=== PATIENT | male | born 1930 | race Caucasian/White ===

== ENCOUNTER 2017-10-30 20:40 | Emergency (ER) | payer OTHER ==
--- NOTE | 2017-10-30 21:16 | PDOC ---
History of Present Illness - General History Source: Patient Exam Limitations: No Limitations - History of Present Illness Initial Comments: 10/30/17 21:42 The patient is an 87 year old male with past medical history of atrial fibrillation who was sent from urgent care for flu like symptoms. As per patient , states hes got the flu but denies any fever, chills, body aches, cough, runny nose. He states he just doesnt feel well as he feels more tired than usual. He denies any sick contacts or recent illness. Denies nausea, vomiting, diarrhea. <Tessa Lowe - Last Filed: 10/30/17 22:02> <Jamie Liu - Last Filed: 10/31/17 02:26> - General Chief Complaint: Irregular Heart Beat Stated Complaint: A-FIB Time Seen by Provider: 10/30/17 21:14 Past History <Tessa Lowe - Last Filed: 10/30/17 22:02> <Jamie Liu - Last Filed: 10/31/17 02:26> - Past Medical History Allergies/Adverse Reactions: Allergies Allergy/AdvReac Type Severity Reaction Status Date / Time No Known Allergies Allergy Unverified 10/30/17 21:27 Home Medications: Ambulatory Orders Dabigatran Etexilate Mesylate [Pradaxa -] 75 mg PO BID 10/30/17 Diltiazem HCl [Diltiazem 24Hr Cd] 240 mg PO DAILY 10/30/17 Furosemide [Lasix] 20 mg PO Q48H 10/30/17 Losartan Potassium [Cozaar -] 50 mg PO DAILY 10/30/17 Docusate Sodium [Colace] 100 mg PO TID #90 capsule 10/31/17 Oseltamivir Phosphate [Tamiflu] 75 mg PO BID #20 capsule 10/31/17 Review of Systems - Review of Systems Able to Perform ROS?: Yes Comments:: 10/30/17 21:42 GENERAL/CONSTITUTIONAL: Present: fever No chills. No weakness. HEAD, EYES, EARS, NOSE AND THROAT: No change in vision. No ear pain or discharge. No sore throat. CARDIOVASCULAR: No chest pain or shortness of breath. RESPIRATORY: No cough, wheezing, or hemoptysis. GASTROINTESTINAL: No nausea, vomiting, diarrhea or constipation. GENITOURINARY: No dysuria, frequency, or change in urination. MUSCULOSKELETAL: No joint or muscle swelling or pain. No neck or back pain. SKIN: No rash NEUROLOGIC: No headache, vertigo, loss of consciousness, or change in strength/ sensation. ENDOCRINE: No increased thirst. No abnormal weight change. HEMATOLOGIC/LYMPHATIC: No anemia, easy bleeding, or history of blood clots. ALLERGIC/IMMUNOLOGIC: No hives or skin allergy. All Other Systems: Reviewed and Negative <Tessa Lowe - Last Filed: 10/30/17 22:02> *Physical Exam - Vital Signs Last Vital Signs Temp Pulse Resp BP Pulse Ox 100.7 F H 92 H 16 126/79 99 10/30/17 21:10 10/30/17 21:10 10/30/17 21:10 10/30/17 21:10 10/30/17 21:10 - Physical Exam Comments: 10/30/17 21:43 GENERAL: Awake, alert, and fully oriented, in no acute distress HEAD: No signs of trauma EYES: PERRLA, EOMI, sclera anicteric, conjunctiva clear ENT: Auricles normal inspection, hearing grossly normal, nares patent, oropharynx clear without exudates. Moist mucosa NECK: Normal ROM, supple, no lymphadenopathy, JVD, or masses LUNGS: Breath sounds equal, clear to auscultation bilaterally. No wheezes, and no crackles HEART: Regular rate and rhythm, normal S1 and S2, no murmurs, rubs or gallops ABDOMEN: Soft, nontender, normoactive bowel sounds. No guarding, no rebound. No masses EXTREMITIES: Normal range of motion, no edema. No clubbing or cyanosis. No cords, erythema, or tenderness NEUROLOGICAL: Cranial nerves II through XII grossly intact. Normal speech, normal gait SKIN: Warm, Dry, normal turgor, no rashes or lesions noted. <Tessa Lowe - Last Filed: 10/30/17 22:02> Heart Score/ECG Review - ECG Intrepretation Comment:: 10/30/17 22:02 Vent rate 88 atrial fibrillation <Tessa Lowe - Last Filed: 10/30/17 22:02> ED Treatment Course - LABORATORY CBC & Chemistry Diagram: 10/30/17 21:30 10/30/17 21:30 <MynorTessa - Last Filed: 10/30/17 22:02> - LABORATORY CBC & Chemistry Diagram: 10/30/17 21:30 10/31/17 00:26 <Jamie Liu - Last Filed: 10/31/17 02:26> Medical Decision Making - Medical Decision Making 10/31/17 02:25 cxr: BONNY as read by me Influenza-- tamiflu hyponatremia likely secondary to decreased PO. lytes sent. resolved with 1Lns <Jamie Liu - Last Filed: 10/31/17 02:26> *DC/Admit/Observation/Transfer - Attestations Scribe Attestion: 10/30/17 21:43 Documentation prepared by Tessa Lowe, acting as medical van driver for Jamie Liu MD. <Tessa Lowe - Last Filed: 10/30/17 22:02> <Jamie Liu - Last Filed: 10/31/17 02:26> Diagnosis at time of Disposition: Influenza - Discharge Dispostion Disposition: HOME Condition at time of disposition: Good - Prescriptions Prescriptions: Docusate Sodium [Colace] 100 mg PO TID #90 capsule Oseltamivir Phosphate [Tamiflu] 75 mg PO BID #20 capsule - Patient Instructions Printed Discharge Instructions: DI for Influenza -- Adult
[2017-10-30 21:21] VITALS: BP 126/79; PULSE 92; TEMP 100.7; BMI 29.0
[2017-10-30 21:50] LABS: HEMATOCRIT 40.9 % (35.4-49); HEMOGLOBIN 13.3 GM/dl (11.7-16.9); MCH 33.8 pg (25.7-33.7); MCHC 32.5 g/dl (32.0-35.9); MEAN CELL VOLUME 103.8 fl (80-96); MEAN PLT VOLUME 9.1 fl (7.5-11.1); PLATELET COUNT 124 K/MM3 (134-434); RBC 3.95 M/mm3 (4.00-5.60); RDW 12.9 % (11.9-15.9)
[2017-10-30 21:51] LABS: ALBUMIN 4.3 g/dl (3.5-5.0); ALK PHOS 75 U/L (32-92); ANION GAP 6 (8-16); BILIRUBIN,TOTAL 1.4 mg/dl (0.2-1.0); BLOOD UREA NITROGEN 23 mg/dl (7-18); CALCIUM 8.3 mg/dl (8.4-10.2); CHLORIDE 101 mmol/L (98-107); CO2 22 mmol/L (22-28); CREATININE 1.2 mg/dl (0.6-1.3); GLUCOSE,RANDOM 94 mg/dl (74-106); POTASSIUM 4.1 mmol/L (3.5-5.1); SGOT/AST 42 U/L (10-42); SGPT/ALT 24 U/L (10-40); SODIUM 129 mmol/L (136-145); TOT PROT 7.4 g/dl (6.4-8.3)
[2017-10-30 23:01] LABS: PLATELET ESTIMATE ADEQUATE
[2017-10-30] MEDS ORDERED: SODIUM CHLORIDE 1,000 ML IV STA (23:23)
[2017-10-30] MEDS ORDERED: OSELTAMIVIR PHOSPHATE 75 MG CAPSULE PO ONE (23:32)
[2017-10-30 23:56] LABS: URINE CREATININE 212.2 mg/dL (20-370)
[2017-10-31] MEDS ORDERED: OSELTAMIVIR PHOSPHATE 75 MG CAPSULE ONE (00:05)
[2017-10-31 01:47] LABS: ANION GAP 10 (8-16); BLOOD UREA NITROGEN 23 mg/dL (7-18); CALCIUM 7.3 mg/dL (8.5-10.1); CHLORIDE 102 mmol/L (98-107); CO2 23 mmol/L (21-32); CREATININE 1.2 mg/dL (0.7-1.3); GLUCOSE,RANDOM 93 mg/dL (74-106); POTASSIUM 4.1 mmol/L (3.5-5.1); SODIUM 135 mmol/L (136-145)
--- NOTE | 2017-11-05 14:36 | EKG ---
Test Reason : Blood Pressure : / mmHG Vent. Rate : 088 BPM Atrial Rate : 094 BPM P-R Int : 000 ms QRS Dur : 086 ms QT Int : 338 ms P-R-T Axes : 000 002 017 degrees QTc Int : 408 ms ATRIAL FIBRILLATION RSR' OR QR PATTERN IN V1 SUGGESTS RIGHT VENTRICULAR CONDUCTION DELAY ABNORMAL ECG NO PREVIOUS ECGS AVAILABLE Confirmed by SINDHU BRAXTON MD ([id number]) on 11/05/2017 2:36:12 PM Referred By: MD THORNTON Confirmed By:SINDHU BRAXTON MD
== END 2017-10-31 02:04 | disposition home or self-care (01) ==
LOC: FER 20:40
PROC: 3E0337Z Introduction of Electrolytic and Water Balance Substance into Peripheral Vein, Percutaneous Approach (ICD-10-PCS; principal; 2017-10-30)
DX: J11.1 Influenza due to unidentified influenza virus with other respiratory manifestations (principal); I48.91 Unspecified atrial fibrillation
CPT/HCPCS: 36415; 71046-TC-FY; 80048; 80053; 82570; 84300; 84484; 85025; 87804; 93005; 96360; 99284-25